=== PATIENT | male | born 1975 | race Caucasian/White ===

== ENCOUNTER 2020-04-16 16:48 | Emergency (ER) | payer BC ==
[2020-04-16 16:55] VITALS: BP 159/90; PULSE 69; RESP 18; TEMP 97.1
[2020-04-16] MEDS ORDERED: PSEUDOEPHEDRINE 12HR 120 MG TABLET.ER PO STA (17:31)
[2020-04-16] MEDS ORDERED: OXYMETAZOLINE 0.05% NASL SPRAY 1 SPRAY BOTTLE NASAL STA (17:31)
--- NOTE | 2020-04-16 18:24 | ED ---
General Adult HPI - General Chief complaint: Headache Stated complaint: Sinus headache Time Seen by Provider: 04/16/20 16:55 Source: patient, RN notes reviewed, old records reviewed Mode of arrival: ambulatory Limitations: no limitations - History of Present Illness Initial comments: 44-year-old male patient presents to ED for evaluation of sinus pressure. Patient reports that for the last 4 days he has been having left maxillary sinus pressure. Reports that about a week ago he had one day of some mild cough which has resolved. Denies any chest pain or shortness of breath. Denies any red flag symptoms or worse headache of life. Feels similar to sinus congestion of the past. Denies any other complaints. Systemic: Pt denies fatigue, fever/chills, rash. Pt denies weakness, night sweats, weight loss. Neuro: Pt denies headache, visual disturbances, syncope or pre-syncope. HEENT: Pt denies ocular discharge or irritation, otalgia, rhinorrhea, pharyngitis or notable lymphadenopathy. Cardiopulmonary: Pt denies chest pain, SOB, heart palpitations, dyspnea on exertion. Abdominal/GI: Pt denies abdominal pain, n/v/d. : Pt denies dysuria, burning w/ urination, frequency/urgency. Denies new onset urinary or bowel incontinence. MSK: Pt denies myalgia, loss of strength or function in extremities. Neuro: Pt denies new onset weakness, paresthesias. - Related Data Previous Rx's Medication Instructions Recorded Amoxicillin/Potassium Clav 1 each PO Q12HR #20 tab 04/16/20 [Augmentin 875-125 Tablet] Allergies Allergy/AdvReac Type Severity Reaction Status Date / Time No Known Allergies Allergy Verified 04/16/20 16:54 Review of Systems ROS Statement: Those systems with pertinent positive or pertinent negative responses have been documented in the HPI. ROS Other: All systems not noted in ROS Statement are negative. Past Medical History Past Medical History: No Reported History History of Any Multi-Drug Resistant Organisms: None Reported Past Surgical History: No Surgical Hx Reported Past Psychological History: No Psychological Hx Reported Past Alcohol Use History: None Reported Past Drug Use History: None Reported General Exam - General Exam Comments Initial Comments: Constitutional: NAD, AOX3, Pt has pleasant affect. HEENT: NC/AT, trachea midline, neck supple, no lymphadenopathy. External ears appear normal, without discharge. Mucous membranes moist. Eyes PERRLA, EOM intact. There is no scleral icterus. No pallor noted. Left maxillary sinus pressure reproducible on palpation. Cardiopulmonary: RRR, no murmurs, rubs or gallops, no JVD noted. Lungs CTAB in anterior and posterior aquino. No peripheral edema. Abdominal exam: Abdomen soft and non-distended. Abdomen non-tender to palpation in all 4 quadrants. Neuro: CN II-XII intact. No nuchal rigidity. No raccon eyes, no sutton sign, no hemotympanum. No cervical spinal tenderness. MSK: Sensation intact in upper and lower extremities. Full active ROM in upper and lower extremities, 5/5 stregnth. Limitations: no limitations Course Vital Signs 04/16/20 16:51 Temperature 97.1 F L Pulse Rate 69 Respiratory 18 Rate Blood Pressure 159/90 O2 Sat by Pulse 100 Oximetry Medical Decision Making - Medical Decision Making 44-year-old male patient to ED for left sinus pressure. Feels similar to sinusitis in the past. Denies red flag symptoms. Neurologic exam is intact. Patient will be treated with Afrin [id number] decongestants. I will prescribe patient Augmentin for him to use in 3 days if symptoms have not improved. The patient requested was also tested for coronavirus. Pt declined CXR. Will return to ED if any worsening symptoms. Case discussed with Dr. Laird. Disposition Clinical Impression: Sinus congestion Disposition: HOME SELF-CARE Condition: Stable Instructions (If sedation given, give patient instructions): Acute Headache (ED) Additional Instructions: Follow up with PCP tomorrow. Use 3 sprays of afrin in each nostril every 12 hours for the next 3 days. I recommend [id number] decongestant Pseudoephedrine. If symptoms in 3 days do not improve take augmentin antibiotic. Return to ED if symptoms worsen in anyway. Self quarentine until coronavirus results. Prescriptions: Amoxicillin/Potassium Clav [Augmentin 875-125 Tablet] 1 each PO Q12HR #20 tab Is patient prescribed a controlled substance at d/c from ED?: No Referrals: Mariely George MD [Primary Care Provider] - 1-2 days
== END 2020-04-16 19:00 | disposition home or self-care (01) ==
LOC: EC 16:48
DX: R09.81 Nasal congestion (principal); Z20.828 Contact with and (suspected) exposure to other viral communicable diseases
CPT/HCPCS: 99284 ×2; U0003

== ENCOUNTER 2021-06-27 18:05 | Inpatient (IN) | payer BC ==
[2021-06-27] MEDS ORDERED: SODIUM CHLORIDE 0.9% 1,000 ML IV STA ×2 (23:05)
[2021-06-27] MEDS ORDERED: MORPHINE SULFATE 4 MG/ML SYRINGE IV STA (23:05)
[2021-06-27] MEDS ORDERED: ONDANSETRON 4 MG/2 ML VIAL IVP STA (23:05)
[2021-06-27] MEDS ORDERED: KETOROLAC 15 MG/ML 1 ML VIAL IVP STA (23:05)
[2021-06-27] MEDS ORDERED: ACETAMINOPHEN TAB 500 MG TAB PO STA (23:06)
--- NOTE | 2021-06-27 23:06 | ED ---
Abdominal Pain HPI - General Chief Complaint: Recheck/Abnormal Lab/Rx Stated Complaint: abd pain Time Seen by Provider: 06/27/21 22:52 Source: patient, RN notes reviewed, old records reviewed Mode of arrival: ambulatory Limitations: no limitations - History of Present Illness Initial Comments: This is a 45-year-old male to the emergency department today. Patient presents today for evaluation of significant back pain left flank pain abdominal pain. P atient also has developed a mild fever and is concerned for coronavirus. He has no shortness of breath no travel history, no cough or congestion. Patient's main complaint is abdominal pain that is a temporarily can be relieved when he is able to pass gas. Patient denies any blood in the stool no nausea vomiting currently and no prior history of abdominal surgery also no history of colonoscopy MD Complaint: abdominal pain -: days(s) Location: diffuse, LLQ, suprapubic Radiation: LLQ Migration to: suprapubic, L flank Severity: severe Severity scale (1-10): 8 Quality: stabbing Consistency: intermittent Improves With: nothing Worsens With: nothing Context: other (none) Associated Symptoms: nausea, diarrhea, anorexia Treatments Prior to Arrival: other (none) - Related Data Previous Rx's Medication Instructions Recorded Amoxicillin/Potassium Clav 1 each PO Q12HR #20 tab 04/16/20 [Augmentin 875-125 Tablet] Allergies Allergy/AdvReac Type Severity Reaction Status Date / Time No Known Allergies Allergy Verified 06/27/21 19:13 Review of Systems ROS Statement: Those systems with pertinent positive or pertinent negative responses have been documented in the HPI. ROS Other: All systems not noted in ROS Statement are negative. Past Medical History Past Medical History: No Reported History History of Any Multi-Drug Resistant Organisms: None Reported Past Surgical History: No Surgical Hx Reported Past Psychological History: No Psychological Hx Reported Smoking Status: Never smoker Past Alcohol Use History: None Reported Past Drug Use History: None Reported General Exam Limitations: no limitations General appearance: alert, in no apparent distress Head exam: Present: atraumatic, normocephalic, normal inspection Eye exam: Present: normal appearance, PERRL, EOMI. Absent: scleral icterus, conjunctival injection, periorbital swelling ENT exam: Present: normal exam, mucous membranes moist Neck exam: Present: normal inspection. Absent: tenderness, meningismus, lymphadenopathy Respiratory exam: Present: normal lung sounds bilaterally. Absent: respiratory distress, wheezes, rales, rhonchi, stridor Cardiovascular Exam: Present: regular rate, normal rhythm, normal heart sounds. Absent: systolic murmur, diastolic murmur, rubs, gallop, clicks GI/Abdominal exam: Present: soft, tenderness, guarding, normal bowel sounds. Absent: distended, rebound, rigid Extremities exam: Present: normal inspection, full ROM, normal capillary refill. Absent: tenderness, pedal edema, joint swelling, calf tenderness Back exam: Present: normal inspection Neurological exam: Present: alert, oriented X3, CN II-XII intact Psychiatric exam: Present: normal affect, normal mood Skin exam: Present: warm, dry, intact, normal color. Absent: rash Course Vital Signs 06/27/21 06/28/21 19:14 00:41 Temperature 101.3 F H 98.3 F Pulse Rate 76 64 Respiratory 20 16 Rate Blood Pressure 131/79 115/70 O2 Sat by Pulse 98 98 Oximetry - Reevaluation(s) Reevaluation #1: 06/28/21 00:54 Medical record is reviewed Reevaluation #2: 06/28/21 00:54 Patient's pain is well-controlled Reevaluation #3: 06/28/21 00:54 Patient is informed of results and questions answered Medical Decision Making - Medical Decision Making 45 male to the ER for evaluation of severe abdominal pain with left lower quadrant abdominal pain positive for diverticulitis with pericolonic abscess. Patient will place on IV antibiotics - Lab Data Result diagrams: 06/27/21 23:00 06/27/21 23:00 Lab Results 06/27/21 06/27/21 06/27/21 Range/Units 19:19 23:00 23:00 WBC 12.9 H (3.8-10.6) k/uL RBC 4.61 (4.30-5.90) m/uL Hgb 14.7 (13.0-17.5) gm/dL Hct 45.0 (39.0-53.0) % MCV 97.6 (80.0-100.0) fL MCH 31.8 (25.0-35.0) pg MCHC 32.6 (31.0-37.0) g/dL RDW 11.9 (11.5-15.5) % Plt Count 210 (150-450) k/uL MPV 7.9 Neutrophils % 82 % Lymphocytes % 11 % Monocytes % 6 % Eosinophils % 0 % Basophils % 0 % Neutrophils # 10.6 H (1.3-7.7) k/uL Lymphocytes # 1.4 (1.0-4.8) k/uL Monocytes # 0.7 (0-1.0) k/uL Eosinophils # 0.1 (0-0.7) k/uL Basophils # 0.0 (0-0.2) k/uL PT 10.5 (9.0-12.0) sec INR 1.0 (<1.2) APTT 22.1 (22.0-30.0) sec Sodium (137-145) mmol/L Potassium (3.5-5.1) mmol/L Chloride (98-107) mmol/L Carbon Dioxide (22-30) mmol/L Anion Gap mmol/L BUN (9-20) mg/dL Creatinine (0.66-1.25) mg/dL Est GFR (CKD-EPI)AfAm (>60 ml/min/1.73 sqM) Est GFR (CKD-EPI)NonAf (>60 ml/min/1.73 sqM) Glucose (74-99) mg/dL Calcium (8.4-10.2) mg/dL Total Bilirubin (0.2-1.3) mg/dL AST (17-59) U/L ALT (4-49) U/L Alkaline Phosphatase (38-126) U/L Total Protein (6.3-8.2) g/dL Albumin (3.5-5.0) g/dL Amylase (30-110) U/L Lipase (23-300) U/L Urine Color Urine Appearance (Clear) Urine pH (5.0-8.0) Ur Specific [place] (1.001-1.035) Urine Protein (Negative) Urine Glucose (UA) (Negative) Urine Ketones (Negative) Urine Blood (Negative) Urine Nitrite (Negative) Urine Bilirubin (Negative) Urine Urobilinogen (<2.0) mg/dL Ur Leukocyte Esterase (Negative) Urine RBC (0-5) /hpf Urine WBC (0-5) /hpf Ur Squamous Epith Cells (0-4) /hpf Amorphous Sediment (None) /hpf Hyaline Casts (0-2) /lpf Urine Mucus (None) /hpf Coronavirus (PCR) Not Detected (Not Detectd) 06/27/21 06/27/21 Range/Units 23:00 23:00 WBC (3.8-10.6) k/uL RBC (4.30-5.90) m/uL Hgb (13.0-17.5) gm/dL Hct (39.0-53.0) % MCV (80.0-100.0) fL MCH (25.0-35.0) pg MCHC (31.0-37.0) g/dL RDW (11.5-15.5) % Plt Count (150-450) k/uL MPV Neutrophils % % Lymphocytes % % Monocytes % % Eosinophils % % Basophils % % Neutrophils # (1.3-7.7) k/uL Lymphocytes # (1.0-4.8) k/uL Monocytes # (0-1.0) k/uL Eosinophils # (0-0.7) k/uL Basophils # (0-0.2) k/uL PT (9.0-12.0) sec INR (<1.2) APTT (22.0-30.0) sec Sodium 136 L (137-145) mmol/L Potassium 4.4 (3.5-5.1) mmol/L Chloride 101 (98-107) mmol/L Carbon Dioxide 23 (22-30) mmol/L Anion Gap 12 mmol/L BUN 15 (9-20) mg/dL Creatinine 0.83 (0.66-1.25) mg/dL Est GFR (CKD-EPI)AfAm >90 (>60 ml/min/1.73 sqM) Est GFR (CKD-EPI)NonAf >90 (>60 ml/min/1.73 sqM) Glucose 124 H (74-99) mg/dL Calcium 9.3 (8.4-10.2) mg/dL Total Bilirubin 0.9 (0.2-1.3) mg/dL AST 36 (17-59) U/L ALT 35 (4-49) U/L Alkaline Phosphatase 67 (38-126) U/L Total Protein 7.6 (6.3-8.2) g/dL Albumin 4.4 (3.5-5.0) g/dL Amylase 58 (30-110) U/L Lipase 47 (23-300) U/L Urine Color Yellow Urine Appearance Clear (Clear) Urine pH 5.5 (5.0-8.0) Ur Specific [place] 1.031 (1.001-1.035) Urine Protein 1+ H (Negative) Urine Glucose (UA) Negative (Negative) Urine Ketones Negative (Negative) Urine Blood Negative (Negative) Urine Nitrite Negative (Negative) Urine Bilirubin Negative (Negative) Urine Urobilinogen <2.0 (<2.0) mg/dL Ur Leukocyte Esterase Negative (Negative) Urine RBC 4 (0-5) /hpf Urine WBC 5 (0-5) /hpf Ur Squamous Epith Cells 1 (0-4) /hpf Amorphous Sediment Rare H (None) /hpf Hyaline Casts 4 H (0-2) /lpf Urine Mucus Many H (None) /hpf Coronavirus (PCR) (Not Detectd) - Radiology Data Radiology results: report reviewed (CT abdomen and pelvis positive for diverticulitis with pericolonic abscess small), image reviewed Disposition Clinical Impression: Fever, Diverticulitis, Colonic diverticular abscess Disposition: ADMITTED IP TO THIS HOSP Condition: Good Is patient prescribed a controlled substance at d/c from ED?: No Referrals: Mariely George MD [Primary Care Provider] - 1-2 days
[2021-06-27 23:36] LABS: Basophils % (A) 0 %; Eosinophils # (A) 0.1 k/uL (0-0.7); Eosinophils % (A) 0 %; HGB 14.7 gm/dL (13.0-17.5); Lymphocytes # (A) 1.4 k/uL (1.0-4.8); Lymphocytes % (A) 11 %; MCH 31.8 pg (25.0-35.0); MCHC 32.6 g/dL (31.0-37.0); MCV 97.6 fL (80.0-100.0); Mean Platelet Volume 7.9; Monocytes # (A) 0.7 k/uL (0-1.0); Monocytes % (A) 6 %; Neutrophils # (A) 10.6 k/uL (1.3-7.7); Neutrophils % (A) 82 %; Platelet Count 210 k/uL (150-450); RBC 4.61 m/uL (4.30-5.90); RDW 11.9 % (11.5-15.5); WBC 12.9 k/uL (3.8-10.6)
[2021-06-27 23:41] LABS: Amorphous Sediment,Urine Rare /hpf; Appearance,Urine Clear (Clear); Bilirubin,Urine Negative (Negative); Blood,Urine Negative (Negative); Color,Urine Yellow; Glucose,Urine (UA) Negative (Negative); Hyaline Casts,Urine 4 /lpf (0-2); Ketones,Urine Negative (Negative); Leukocyte Esterase,Urine Negative (Negative); Mucus,Urine Many /hpf; Nitrite,Urine Negative (Negative); PH, Urine 5.5 (5.0-8.0); Protein,Urine 1+ (Negative); RBC,Urine 4 /hpf (0-5); Specific Gravity,Urine 1.031 (1.001-1.035); Squamous Epithelial Cell,Urine 1 /hpf (0-4); Urobilinogen,Urine <2.0 mg/dL (<2.0); WBC,Urine 5 /hpf (0-5)
[2021-06-27 23:42] LABS: ALT 35 U/L (4-49); AST 36 U/L (17-59); African American GFR (CKD) >90 (>60 ml/min/1.73 sqM); Albumin 4.4 g/dL (3.5-5.0); Alkaline Phosphatase 67 U/L (38-126); Amylase 58 U/L (30-110); Anion Gap 12 mmol/L; Blood Urea Nitrogen 15 mg/dL (9-20); Calcium 9.3 mg/dL (8.4-10.2); Carbon Dioxide 23 mmol/L (22-30); Chloride 101 mmol/L (98-107); Glucose 124 mg/dL (74-99); Lipase 47 U/L (23-300); Non-African American GFR(CKD) >90 (>60 ml/min/1.73 sqM); Sodium 136 mmol/L (137-145); Total Bilirubin 0.9 mg/dL (0.2-1.3); Total Protein 7.6 g/dL (6.3-8.2)
[2021-06-27 23:43] LABS: Potassium 4.4 mmol/L (3.5-5.1)
[2021-06-27 23:56] LABS: Partial Thromboplastin Time 22.1 sec (22.0-30.0); Prothrombin Time 10.5 sec (9.0-12.0)
--- NOTE | 2021-06-28 00:06 | CT ---
EXAMINATION TYPE: CT abdomen pelvis w con DATE OF EXAM: 06/27/2021 COMPARISON: None HISTORY: LLQ pain CT DLP: 1401.6 mGycm Automated exposure control for dose reduction was used. CONTRAST: Performed with IV Contrast, patient injected with 100 mL of Isovue 300. Images obtained from the diaphragm to the floor the pelvis with IV contrast. Lung bases are clear. There is no pleural effusion. Heart size is normal. There is no pericardial eff usion. Liver spleen and stomach pancreas gallbladder appear intact. The bile ducts are not dilated. There is no adrenal mass. Kidneys show satisfactory contrast opacification. There is no hydronephrosis. There is a 1 cm cyst in the anterior right kidney. There is 1 cm cortical cyst upper pole right kidney. De layed images show normal renal excretion. Ureters are not dilated. Bladder distends smoothly. There is wall thickening of the mid sigmoid colon. There is extensive fat stranding around the sigmoi d colon with some fluid in the pelvis and minimal fluid in the left paracolic gutter. There is a smal l extraluminal air bubbles at the posterior aspect of the sigmoid colon that could be diverticula or abscess. Appendix appears normal. Small bowel pattern is normal. The lumbar vertebrae have normal alignment. Posterior elements are intact. There is no compression fr acture. Bony pelvis is intact. Hip joints are intact. IMPRESSION: There is evidence of sigmoid diverticulitis with small peridiverticular abscess or sigmoid diverticul um and significant inflammatory changes. Mild free fluid in the pelvis. No free air.
[2021-06-28] MEDS ORDERED: ONDANSETRON 4 MG/2 ML VIAL IVP PRN (00:56)
[2021-06-28] MEDS ORDERED: NALOXONE 0.4 MG/ML 1 ML VIAL IV PRN (00:56)
[2021-06-28] MEDS ORDERED: SODIUM CHLORIDE 0.9% 1,000 ML IV STA (00:56)
[2021-06-28] MEDS ORDERED: MORPHINE SULFATE 4 MG/ML SYRINGE IV PRN (00:56)
[2021-06-28] MEDS ORDERED: AMPICILLIN-SULBACTAM 3 GM in SODIUM CHLORIDE 0.9% 100 ML IVPB STA (00:56)
[2021-06-28] MEDS: SODIUM CHLORIDE 0.9% 1,000 ML IV SCH ×3 (01:11→18:06)
[2021-06-28] MEDS ORDERED: AMPICILLIN-SULBACTAM 3 GM in SODIUM CHLORIDE 0.9% 100 ML IVPB SCH (09:00)
--- NOTE | 2021-06-28 13:12 | P.GSHP ---
History of Present Illness H&P Date: 06/28/21 Chief Complaint: diverticulitis is a 45-year-old male with complaints of abdominal pain. Patient workup and management. Son have evidence of diverticulitis. Past Medical History Past Medical History: No Reported History History of Any Multi-Drug Resistant Organisms: None Reported Past Surgical History: No Surgical Hx Reported Past Psychological History: No Psychological Hx Reported Smoking Status: Never smoker Past Alcohol Use History: None Reported Past Drug Use History: None Reported - Past Family History Father Additional Family Medical History / Comment(s): spinal stroke Medications and Allergies Home Medications Medication Instructions Recorded Confirmed Type No Known Home Medications 06/28/21 06/28/21 History Allergies Allergy/AdvReac Type Severity Reaction Status Date / Time No Known Allergies Allergy Verified 06/28/21 06:47 Surgical - Exam Vital Signs Temp Pulse Resp BP Pulse Ox 101.3 F H 76 20 131/79 98 06/27/21 19:14 06/27/21 19:14 06/27/21 19:14 06/27/21 19:14 06/27/21 19:14 - General well developed, well nourished, no distress - Eyes PERRL - ENT normal pinna - Neck no masses - Respiratory normal expansion - Cardiovascular Rhythm: regular - Abdomen Mild tenderness throughout. There is increased tenderness left lower quadrant Abdomen: soft Results - Labs 06/27/21 23:00 06/27/21 23:00 Abnormal Lab Results - Last 24 Hours (Table) 06/27/21 06/27/21 06/27/21 Range/Units 23:00 23:00 23:00 WBC 12.9 H (3.8-10.6) k/uL Neutrophils # 10.6 H (1.3-7.7) k/uL Sodium 136 L (137-145) mmol/L Glucose 124 H (74-99) mg/dL Urine Protein 1+ H (Negative) Amorphous Sediment Rare H (None) /hpf Hyaline Casts 4 H (0-2) /lpf Urine Mucus Many H (None) /hpf Diabetes panel 06/27/21 Range/Units 23:00 Sodium 136 L (137-145) mmol/L Potassium 4.4 (3.5-5.1) mmol/L Chloride 101 (98-107) mmol/L Carbon Dioxide 23 (22-30) mmol/L BUN 15 (9-20) mg/dL Creatinine 0.83 (0.66-1.25) mg/dL Glucose 124 H (74-99) mg/dL Calcium 9.3 (8.4-10.2) mg/dL AST 36 (17-59) U/L ALT 35 (4-49) U/L Alkaline Phosphatase 67 (38-126) U/L Total Protein 7.6 (6.3-8.2) g/dL Albumin 4.4 (3.5-5.0) g/dL Calcium panel 06/27/21 Range/Units 23:00 Calcium 9.3 (8.4-10.2) mg/dL Albumin 4.4 (3.5-5.0) g/dL Pituitary panel 06/27/21 Range/Units 23:00 Sodium 136 L (137-145) mmol/L Potassium 4.4 (3.5-5.1) mmol/L Chloride 101 (98-107) mmol/L Carbon Dioxide 23 (22-30) mmol/L BUN 15 (9-20) mg/dL Creatinine 0.83 (0.66-1.25) mg/dL Glucose 124 H (74-99) mg/dL Calcium 9.3 (8.4-10.2) mg/dL Adrenal panel 06/27/21 Range/Units 23:00 Sodium 136 L (137-145) mmol/L Potassium 4.4 (3.5-5.1) mmol/L Chloride 101 (98-107) mmol/L Carbon Dioxide 23 (22-30) mmol/L BUN 15 (9-20) mg/dL Creatinine 0.83 (0.66-1.25) mg/dL Glucose 124 H (74-99) mg/dL Calcium 9.3 (8.4-10.2) mg/dL Total Bilirubin 0.9 (0.2-1.3) mg/dL AST 36 (17-59) U/L ALT 35 (4-49) U/L Alkaline Phosphatase 67 (38-126) U/L Total Protein 7.6 (6.3-8.2) g/dL Albumin 4.4 (3.5-5.0) g/dL - Imaging Additional studies: and computed tomography scan the abdomen shows evidence of sigmoid diverticulitis possible peridiverticular abscess. Assessment and Plan Assessment: Diverticula is. Patient remained nothing by mouth. We'll continue IV antibiotics.
[2021-06-28] MEDS ORDERED: ALPRAZolam 0.25 MG TAB PO PRN (14:45)
[2021-06-28] MEDS ORDERED: HYDROmorphone 0.5 MG/0.5 ML SYRINGE IVP PRN (14:45)
[2021-06-28] MEDS ORDERED: TEMAZEPAM 15 MG CAP PO PRN (14:45)
[2021-06-28] MEDS: PIPERACILLIN-TAZOBACTAM 3.375 GM in SODIUM CHLORIDE 0.9% 100 ML IVPB SCH (15:54)
[2021-06-28] MEDS: HEPARIN SODIUM,PORCINE/PF 5,000 UNIT/0.5 ML SYRINGE SQ SCH ×2 (15:54→22:04)
--- NOTE | 2021-06-28 16:59 | HP ---
HISTORY AND PHYSICAL CHIEF COMPLAINT: Abdominal pain and diverticulitis, diverticular abscess. HISTORY OF PRESENT ILLNESS: This 45-year-old gentleman with a past medical history of no significant medical issues being followed by Dr. George in the outpatient setting, complaining of abdominal pain. The patient had pain in the left flank. The patient also developed some mild fever and the patient was concerned about Covid 19. Patient came to [facility] and was admitted for further evaluation and treatment. White count is elevated at 12.9. The Covid 19 was negative. However, a CT scan of the abdomen and pelvis noted, showed evidence of sigmoid diverticulitis, small prediverticular abscess and inflammatory changes. Patient was admitted for further evaluation and treatment. Surgical evaluation by Dr. Fontanez is ongoing at this time. Dr. Fontanez is recommending IV antibiotics at this point. There is no history of rigors, chills, no history of headache, loss of consciousness or seizures. PAST MEDICAL HISTORY: No significant cardiorespiratory illness. MEDICATIONS: Prior to admission, none. ALLERGIES: None. FAMILY HISTORY: History of spinal stroke in the family. SOCIAL HISTORY: No history of smoking, no history of alcohol intake. REVIEW OF SYSTEMS: ENT: No diminished vision. No diminished hearing. CARDIOVASCULAR: No angina. RESPIRATION: No cough. GI as mentioned earlier. : No dysuria. NERVOUS SYSTEM: No numbness or weakness. ALLERGY/IMMUNOLOGY: No asthma or hayfever. MUSCULOSKELETAL: As mentioned earlier. HEMATOLOGY/ONCOLOGY: No history of anemia. ENDOCRINE: No history of diabetes or hypothyroidism. CONSTITUTIONAL: As mentioned earlier. DERMATOLOGY: Negative. RHEUMATOLOGY: Negative. PSYCHIATRIC: As mentioned. PHYSICAL EXAMINATION: Alert and oriented times three. Pulse 64, blood pressure is 115/70, respirations 16, temperature 98.3, T-max 101.3, pulse ox 98% on room air. HEENT is conjunctivae normal. NECK: No JVD. CARDIOVASCULAR: S1, S2 muffled. RESPIRATION: Breath sounds diminished in the bases. No rhonchi. No crackles. ABDOMEN: Soft, obese. Mild diffuse tenderness in the left side present. No guarding. No rigidity. No mass palpable. No rebound tenderness. Bowel sounds present. No ascites. LEGS: No edema. No swelling. NERVOUS SYSTEM: Higher functions as mentioned. Moves all four limbs. No focal motor or sensory deficits. LYMPHATICS: No lymph nodes palpable in the neck, axillae or groin. SKIN: No ulcer, no rash and no bleeding. JOINTS: No active deforming arthropathy. LABS: WBC 12.9, hemoglobin 14.7, sodium 133, potassium 4.4. ASSESSMENT: 1. Abdominal pain with possible acute diverticulitis with peridiverticular abscess with possible early sepsis, present on admission with severe abdominal pain. 2. Increased WBC. 3. Hyponatremia, mild. 4. Elevated random glucose. 5. Obesity with body mass of 31.9. 6. FULL CODE. RECOMMENDATIONS AND DISCUSSION: This 45-year-old gentleman presented with multiple complex medical issues, we will monitor the patient closely, continue the current medications, management and symptomatic treatment. We will initiate IV Zosyn and surgical evaluation. Otherwise, symptomatic treatment. Guarded prognosis because of multiple complex medical issues. Further recommendations to follow. A copy of this dictation being forwarded to Dr. George who is the primary physician. Closely follow with surgery. Prognosis guarded. Discussed with the patient and family at the bedside. MMODL / IJN: [id number] /
[2021-06-28] MEDS: PANTOPRAZOLE 40 MG/10 ML VIAL IVP SCH (22:04)
[2021-06-29] MEDS: PIPERACILLIN-TAZOBACTAM 3.375 GM in SODIUM CHLORIDE 0.9% 100 ML IVPB SCH ×3 (00:49→15:31)
[2021-06-29] MEDS: SODIUM CHLORIDE 0.9% 1,000 ML IV SCH ×3 (05:47→15:32)
[2021-06-29] MEDS: PANTOPRAZOLE 40 MG/10 ML VIAL IVP SCH (07:31)
[2021-06-29] MEDS: HEPARIN SODIUM,PORCINE/PF 5,000 UNIT/0.5 ML SYRINGE SQ SCH ×2 (07:32→20:30)
[2021-06-29 09:41] LABS: African American GFR (CKD) 119.3 (60.0-200.0); Albumin 3.7 g/dL (3.8-4.9); Albumin/Globulin Ratio 1.73 (1.60-3.17); BUN/Creat Ratio 15.04 Ratio (12.00-20.00); Blood Urea Nitrogen 13.6 mg/dL (9.0-27.0); Calcium 8.8 mg/dL (8.7-10.3); Carbon Dioxide 23.7 mmol/L (20.0-27.5); Globulin 2.2 g/dL (1.6-3.3); Magnesium 1.9 mg/dL (1.5-2.4); Phosphorus 2.4 mg/dL (2.4-5.1); Potassium 3.8 mmol/L (3.5-5.5); Total Bilirubin 0.6 mg/dL (0.30-1.20); Total Protein 5.9 g/dL (6.2-8.2)
[2021-06-29 09:42] LABS: Basophils # (A) 0.02 X 10*3/uL (0.00-0.10); Basophils % (A) 0.4 %; Eosinophils # (A) 0.07 X 10*3/uL (0.04-0.35); Eosinophils % (A) 1.4 %; HCT 38.6 % (39.6-50.0); HGB 11.9 g/dL (13.0-17.0); Lymphocytes # (A) 1.24 X 10*3/uL (0.90-5.00); Lymphocytes % (A) 25.3 %; MCH 30.1 pg (27.0-32.0); MCHC 30.8 g/dL (32.0-37.0); MCV 97.7 fL (80.0-97.0); Mean Platelet Volume 10.6 fL (9.5-12.2); Monocytes # (A) 0.44 X 10*3/uL (0.20-1.00); Neutrophils # (A) 3.14 X 10*3/uL (1.80-7.70); Neutrophils % (A) 63.9 %; Platelet Count 192 X 10*3/uL (140-440); RBC 3.95 X 10*6/uL (4.40-5.60); RDW 11.9 % (11.5-14.5); WBC 4.91 X 10*3/uL (4.50-10.00)
--- NOTE | 2021-06-29 13:06 | P.PN ---
Progress Note - Text Progress Note Date: 06/29/21 Patient feels significantly better. He states his pain is much improved. He still has some mild pain left lower quadrant. On exam vital signs are stable. Abdomen soft. Improving diverticula is. Patient will start on clear liquid diet.
[2021-06-29] MEDS ORDERED: ACETAMINOPHEN TAB 500 MG TAB PO PRN (18:22)
--- NOTE | 2021-06-29 18:48 | PN ---
PROGRESS NOTE DATE OF SERVICE: 06/29/2021 This 45-year-old gentleman was admitted with acute diverticulitis and diverticular abscess on IV antibiotics. Patient on conservative line of management. No chest pain. No palpitations. No fever. PHYSICAL EXAMINATION: Alert and oriented x3. The pulse is 63, blood pressure 120/77, respiration 18, temperature 98.2, pulse ox 98% on room air. HEENT: Conjunctivae normal. Oral mucosa moist. NECK: No jugular venous distention. No lymph node enlargement. CARDIOVASCULAR: S1, S2, muffled. No S3, no S4, RESPIRATORY: Diminished breath sounds at the bases. A few scattered rhonchi. ABDOMEN: Soft. Mild diffuse tenderness on the left side of the abdomen. NERVOUS SYSTEM: No focal deficits. LAB: WBC 4.91, hemoglobin 11.9, sodium 141, potassium 3.8. ASSESSMENT: 1. Abdominal pain with possible acute diverticulitis with pre diverticular abscess with possible early sepsis, present on admission with severe abdominal pain. 2. Increased WBC. 3. Hyponatremia, mild. 4. Elevated random glucose. 5. Obesity with body mass index 31.9. 6. FULL CODE. RECOMMENDATIONS AND DISCUSSION: Recommend to continue current management and symptomatic treatment. Otherwise, continue with antibiotics. Closely follow with surgery. Guarded prognosis. Further recommendations to follow. MMODL / IJN: [id number] /
[2021-06-30] MEDS: PANTOPRAZOLE 40 MG/10 ML VIAL IVP SCH ×2 (00:13→07:36)
[2021-06-30] MEDS: PIPERACILLIN-TAZOBACTAM 3.375 GM in SODIUM CHLORIDE 0.9% 100 ML IVPB SCH ×2 (00:14→09:17)
[2021-06-30] MEDS: SODIUM CHLORIDE 0.9% 1,000 ML IV SCH (05:24)
[2021-06-30 09:02] LABS: Basophils # (A) 0.03 X 10*3/uL (0.00-0.10); Basophils % (A) 0.7 %; Eosinophils # (A) 0.12 X 10*3/uL (0.04-0.35); Eosinophils % (A) 2.9 %; HCT 36.9 % (39.6-50.0); HGB 11.7 g/dL (13.0-17.0); Lymphocytes # (A) 1.44 X 10*3/uL (0.90-5.00); Lymphocytes % (A) 35.3 %; MCH 30.7 pg (27.0-32.0); MCHC 31.7 g/dL (32.0-37.0); MCV 96.9 fL (80.0-97.0); Mean Platelet Volume 10.7 fL (9.5-12.2); Monocytes % (A) 9.8 %; Neutrophils # (A) 2.08 X 10*3/uL (1.80-7.70); Neutrophils % (A) 51.1 %; Platelet Count 209 X 10*3/uL (140-440); RBC 3.81 X 10*6/uL (4.40-5.60); RDW 11.9 % (11.5-14.5); WBC 4.08 X 10*3/uL (4.50-10.00)
[2021-06-30 09:13] LABS: African American GFR (CKD) 125.9 (60.0-200.0); Anion Gap 8.6 mmol/L (10.00-18.00); BUN/Creat Ratio 12.13 Ratio (12.00-20.00); Blood Urea Nitrogen 9.7 mg/dL (9.0-27.0); Calcium 8.8 mg/dL (8.7-10.3); Carbon Dioxide 23.4 mmol/L (20.0-27.5); Non-African American GFR(CKD) 108.6 (60.0-200.0); Potassium 4.1 mmol/L (3.5-5.5)
[2021-06-30] MEDS: HEPARIN SODIUM,PORCINE/PF 5,000 UNIT/0.5 ML SYRINGE SQ SCH (09:17)
[2021-06-30 16:41] VITALS: BP 145/92; PULSE 63; RESP 14; TEMP 97.9
--- NOTE | 2021-06-30 20:16 | DS ---
DISCHARGE SUMMARY DATE OF SERVICE: 06/30/2021 FINAL DIAGNOSES: 1. Abdominal pain with possible acute diverticulitis with peridiverticular abscess and possible early sepsis, present on admission, severe abdominal pain, improved. 2. Increased WBC. 3. Hyponatremia mild. 4. Elevated random glucose. 5. Obesity with body mass of 31.8. 6. FULL CODE. DISCHARGE DISPOSITION: The patient will be discharged in stable condition with guarded prognosis. Surgery cleared the patient for discharge. HISTORY OF PRESENT ILLNESS: This 45-year-old gentleman with a past medical history of multiple medical problems, being followed by Dr. George in the outpatient setting admitting with abdominal pain and features of acute diverticulitis and diverticular abscess, treated with IV antibiotics. Patient improved significantly. Dr. Fontanez saw the patient and recommended outpatient followup. Patient is keen on going home. The patient discharged in stable condition with guarded prognosis. DISCHARGE ADVICE AND MEDICATIONS: 1. Diet is soft bland as tolerated. 2. Activity limited followup. 3. Follow up with Dr. Fontanez in 1 week or p.r.n. 4. Follow up with Dr. George in 2-3 days. MEDICATIONS: Will be as follows: 1. Augmentin 875 mg p.o. b.i.d. for 5 days. 2. Colace as before, Colace per surgery. 3. Levaquin 500 mg p.o. daily for 1 week. 4. Tylenol p.r.n. Once again the patient being discharged in stable condition with guarded prognosis. MMODL / IJN: [id number] /
--- NOTE | 2021-07-01 11:22 | P.DS ---
Providers Date of admission: 06/28/21 00:56 Expected date of discharge: 06/30/21 Attending physician: Octavio Fontanez Consults: 06/28/21 10:38 Consult Physician Routine Consulting Provider: Octavio Fontanez Consult Reason/Comments: divertic?? Do you want consulting provider notified?: Yes Primary care physician: Doris Schuster [place] [facility] Course: This is a 45-year-old male who was admitted with diverticulitis. Patient responded to medical therapy. Patient was discharged home on 06/30/2021. He will follow-up the office in one week. Patient Condition at Discharge: Good Plan - Discharge Summary New Discharge Prescriptions: New Docusate [Colace] 100 mg PO BID #20 capsule Levofloxacin [Levaquin] 500 mg PO DAILY 1 Days #7 tab Acetaminophen Tab [Tylenol] 650 mg PO Q6H #30 tab Amoxic-Pot Clav 875-125Mg [Augmentin 875-125] 1 tab PO BID 5 Days #10 tab Discharge Medication List Acetaminophen Tab [Tylenol] 650 mg PO Q6H #30 tab 06/30/21 [Rx] Amoxic-Pot Clav 875-125Mg [Augmentin 875-125] 1 tab PO BID 5 Days #10 tab 06/30/21 [Rx] Docusate [Colace] 100 mg PO BID #20 capsule 06/30/21 [Rx] Levofloxacin [Levaquin] 500 mg PO DAILY 1 Days #7 tab 06/30/21 [Rx] Follow up Appointment(s)/Referral(s): Mariely George MD [Primary Care Provider] - 1-2 days (office closed at time of discharge. Please call Friday to schedule appointment ) Octavio Fnotanez MD [STAFF PHYSICIAN] - 1 Week (office closed at time of discharge. Please call Friday for appointment ) Ambulatory/Diagnostic Orders: Complete Blood Count w/diff [LAB.AMB] Location: None Selected Patient Instructions/Handouts: Diverticulitis (DC), Diverticulitis Diet (DC) Discharge Disposition: HOME SELF-CARE
== END 2021-06-30 15:55 | disposition home or self-care (01) | DRG 392 ==
LOC: EC 18:05 → 5NMEDONC 06-28 00:56 → 2SICU 06-28 12:09 → 5NMEDONC 06-28 12:10 → 4SSUR 06-28 20:09
PROVIDERS: ADMIT Surgery; ATTEND Surgery
DX: K57.20 Diverticulitis of large intestine with perforation and abscess without bleeding (principal); E87.1 Hypo-osmolality and hyponatremia; Z20.822 Contact with and (suspected) exposure to COVID-19; E66.9 Obesity, unspecified; Z68.31 Body mass index [BMI] 31.0-31.9, adult; Z82.3 Family history of stroke; R73.9 Hyperglycemia, unspecified
CPT/HCPCS: 36415; 74177; 80048; 80053; 81001; 82150; 83690; 83735; 84100; 85025; 85610; 85730; 87635; 96361; 96374; 96375; 99285

== ENCOUNTER 2021-08-06 08:36 | Day surgery (SDC) | payer BC ==
[~2021-08-06 08:36] MED LIST: LACTATED RINGERS 1,000 ML IV SCH; LIDOCAINE 1% (10MG/ML) FOR IV START INTRADERMA PRN
[2021-08-06 09:05] VITALS: TEMP 98
[2021-08-06] MEDS ORDERED: PROPOFOL 10 MG/ML 20 ML VIAL IV ONE (09:33)
[2021-08-06] MEDS ORDERED: GLYCOPYRROLATE 0.2 MG/ML 2 ML VIAL ONE (09:33)
[2021-08-06] MEDS ORDERED: LIDOCAINE 1% INJ 10MG/ML (20 ML MDV) ONE (09:33)
--- NOTE | 2021-08-06 10:18 | P.OP ---
Date of Procedure: 08/06/21 Preoperative Diagnosis: GI bleed Diverticulitis Postoperative Diagnosis: Antral gastritis Diverticulosis Procedure(s) Performed: EGD Colonoscopy Anesthesia: MAC Surgeon: Octavio Fontanez Pathology: other (Antrum) Condition: stable Disposition: PACU Description of Procedure: The patient's placed on the endoscopy table in the lateral position. He received IV sedation. The gastroscope placed oropharynx passed in the esophagus into the stomach. Scope then placed through the pylorus. The first and second portion of the duodenum appeared normal. Scope was brought back the antrum this. Mildly inflamed. A biopsies performed. The scope was then retroflexed and the remainder of the stomach appeared normal. The GE junction was at 40 cm. The distal esophagus appeared normal. The proximal esophagus appeared normal. Scope withdrawn for patient. Next digital rectal exam was performed. This revealed no abnormalities. The flexible colonoscope was then placed patient anus passed throughout the entire colon. The ileocecal valve was visualized. The cecum, ascending and transverse colon appeared normal. In the descending colon was a few scattered diverticula. In the sigmoid colon there is more diverticula changes seen. There is no evidence of any active diverticulitis. Scope was then brought back the rectum and this appeared normal. The scope withdrawn for patient.
--- NOTE | 2021-08-06 10:19 | P.GSHP ---
History of Present Illness H&P Date: 08/06/21 Chief Complaint: GI bleed, diverticulitis Is a 46-year-old male who presents today for colonoscopy. Patient has had recent hospital for diverticulitis Past Medical History Past Medical History: No Reported History Additional Past Medical History / Comment(s): DIVERTICULITIS History of Any Multi-Drug Resistant Organisms: None Reported Past Surgical History: No Surgical Hx Reported Additional Past Surgical History / Comment(s): BILATERAL EAR TUBES. Past Anesthesia/Blood Transfusion Reactions: No Reported Reaction Additional Past Anesthesia/Blood Transfusion Reaction / Comment(s): IS VERY NERVOUS ABOUT ANESTHESIA Past Psychological History: No Psychological Hx Reported Smoking Status: Never smoker Past Alcohol Use History: None Reported Additional Past Alcohol Use History / Comment(s): SMOKED ON AND OFF. QUIT 2019. Past Drug Use History: None Reported - Past Family History Father Additional Family Medical History / Comment(s): spinal stroke Medications and Allergies Home Medications Medication Instructions Recorded Confirmed Type Acetaminophen Tab [Tylenol] 650 mg PO Q6H #30 tab 06/30/21 08/06/21 Rx Allergies Allergy/AdvReac Type Severity Reaction Status Date / Time No Known Allergies Allergy Verified 08/06/21 08:53 Surgical - Exam Vital Signs Temp Pulse Resp BP Pulse Ox 98.0 F 65 18 134/94 100 08/06/21 08:56 08/06/21 08:56 08/06/21 08:56 08/06/21 08:56 08/06/21 08:56 - General well developed, well nourished, no distress - Eyes PERRL - ENT normal pinna - Neck no masses - Respiratory normal expansion - Cardiovascular Rhythm: regular - Abdomen Abdomen: soft, non tender Assessment and Plan Assessment: GI bleed, diverticulitis. We'll perform EGD and colonoscopy
[2021-08-06 10:25] VITALS: RESP 16
[2021-08-06 11:02] VITALS: BP 142/79; PULSE 75
== END 2021-08-06 11:34 | disposition home or self-care (01) ==
LOC: ORWHC2ENDO 08:36
PROVIDERS: ATTEND Surgery
DX: K57.30 Diverticulosis of large intestine without perforation or abscess without bleeding (principal); K29.70 Gastritis, unspecified, without bleeding; Z98.890 Other specified postprocedural states; Z87.891 Personal history of nicotine dependence; Z84.89 Family history of other specified conditions; Z79.899 Other long term (current) drug therapy
CPT/HCPCS: 88305; 45378; 43239; J2001; J2704

== ENCOUNTER 2022-06-18 17:45 | Emergency (ER) | payer BC ==
[2022-06-18 17:54] VITALS: BP 114/76; PULSE 73; RESP 16; TEMP 97.8
[2022-06-18] MEDS ORDERED: KETOROLAC 15 MG/ML 1 ML VIAL IVP STA (18:19)
[2022-06-18] MEDS ORDERED: SODIUM CHLORIDE 0.9% 500 ML 500 ML IV STA (18:19)
[2022-06-18 18:55] LABS: Basophils # (A) 0.1 k/uL (0-0.2); Basophils % (A) 2 %; Eosinophils % (A) 0 %; HCT 43.9 % (39.0-53.0); HGB 14.7 gm/dL (13.0-17.5); Lymphocytes # (A) 1.3 k/uL (1.0-4.8); Lymphocytes % (A) 34 %; MCH 30.8 pg (25.0-35.0); MCHC 33.5 g/dL (31.0-37.0); Mean Platelet Volume 8.2; Monocytes # (A) 0.2 k/uL (0-1.0); Monocytes % (A) 7 %; Neutrophils # (A) 2.1 k/uL (1.3-7.7); Neutrophils % (A) 56 %; Platelet Count 151 k/uL (150-450); RBC 4.77 m/uL (4.30-5.90); RDW 11.8 % (11.5-15.5); WBC 3.7 k/uL (3.8-10.6)
[2022-06-18 19:04] LABS: Appearance,Urine Clear (Clear); Bilirubin,Urine Negative (Negative); Blood,Urine Negative (Negative); Color,Urine Yellow; Glucose,Urine (UA) Negative (Negative); Ketones,Urine Negative (Negative); Leukocyte Esterase,Urine Negative (Negative); Nitrite,Urine Negative (Negative); Protein,Urine Trace (Negative); Specific Gravity,Urine 1.013 (1.001-1.035); Urobilinogen,Urine <2.0 mg/dL (<2.0)
--- NOTE | 2022-06-18 19:06 | CT ---
EXAMINATION TYPE: CT abdomen pelvis wo con DATE OF EXAM: 06/18/2022 HISTORY: Abdominal pain, hx diverticulitis CT DLP: 722.6 mGycm. Automated Exposure Control for Dose Reduction was Utilized. TECHNIQUE: CT scan of the abdomen and pelvis is performed without oral or IV contrast. COMPARISON: CT abdomen and pelvis June 27, 2021 FINDINGS: Within the limitations of a non-contrast study, the following observations are made. LUNG BASES: New patchy groundglass opacity in the right lower lobe greatest posterior lung base. LIVER/GB: No significant abnormality is appreciated. PANCREAS: No significant abnormality is seen. SPLEEN: No significant abnormality is seen. ADRENALS: No significant abnormality is seen. KIDNEYS: Single 2 to 3 mm nonobstructing calculus in the right kidney coronal image 62. No left-sided nephrolithiasis. No hydronephrosis seen bilaterally. No intraluminal calculus in the poorly distende d bladder. Single right-sided pelvic phlebolith on axial image 80 BOWEL: Suboptimal evaluation without enteric contrast. No suspicious small or large bowel dilatation is seen on current study. GENITAL ORGANS: No gross abnormality seen. LYMPH NODES: No greater than 1cm abdominal or pelvic lymph nodes are appreciated. OSSEOUS STRUCTURES: No significant abnormality is seen. OTHER: Stable small fat-containing right inguinal hernia. IMPRESSION: No bowel obstruction. No suspicious acute finding identified on noncontrast CT on current study.
[2022-06-18 19:07] LABS: ALT 47 U/L (4-49); AST 50 U/L (17-59); African American GFR (CKD) >90 (>60 ml/min/1.73 sqM); Albumin 4.2 g/dL (3.5-5.0); Alkaline Phosphatase 65 U/L (38-126); Amylase 66 U/L (30-110); Anion Gap 10 mmol/L; Blood Urea Nitrogen 15 mg/dL (9-20); Calcium 8.9 mg/dL (8.4-10.2); Carbon Dioxide 26 mmol/L (22-30); Chloride 102 mmol/L (98-107); Glucose 97 mg/dL (74-99); Lipase 110 U/L (23-300); Non-African American GFR(CKD) >90 (>60 ml/min/1.73 sqM); Potassium 3.8 mmol/L (3.5-5.1); Sodium 138 mmol/L (137-145); Total Bilirubin 0.6 mg/dL (0.2-1.3)
--- NOTE | 2022-06-18 19:39 | ED ---
General Adult HPI - General Chief complaint: Abdominal Pain Stated complaint: abd pain Time Seen by Provider: 06/18/22 17:55 Source: patient, RN notes reviewed, old records reviewed Mode of arrival: ambulatory Limitations: no limitations - History of Present Illness Initial comments: This a 46-year-old male who presents emergency Department complaining of abdominal pain for 2 days. Patient states prior to that he did have a fever and the rest the family had RSV so he assumes is what he had. Patient states the fevers been gone now for 2 days. Patient complains of left lower quadrant pain he states feels like the diverticulitis he had a few years ago. Patient states last anyway to commit and hit [facility] for 3 days. Patient was trying to avoid that today. Patient denies any nausea vomiting. Patient denies any fever for the last 2 days. Patient denies any back pain. Patient denies any dysuria hematuria urinary frequency. - Related Data Home Medications Medication Instructions Recorded Confirmed Bismuth Subsalicylate 30 ml PO Q4H PRN 11/08/21 06/18/22 [Pepto-Bismol] Acetaminophen [Tylenol Extra 500 mg PO Q6H PRN 06/18/22 06/18/22 Strength] guaiFENesin-DM 600/30MG [Mucinex 1 tab PO Q12H PRN 06/18/22 06/18/22 Dm] Allergies Allergy/AdvReac Type Severity Reaction Status Date / Time No Known Allergies Allergy Verified 06/18/22 19:27 Review of Systems ROS Statement: Those systems with pertinent positive or pertinent negative responses have been documented in the HPI. ROS Other: All systems not noted in ROS Statement are negative. Past Medical History Past Medical History: No Reported History Additional Past Medical History / Comment(s): DIVERTICULITIS History of Any Multi-Drug Resistant Organisms: None Reported Past Surgical History: No Surgical Hx Reported Additional Past Surgical History / Comment(s): BILATERAL EAR TUBES. Past Anesthesia/Blood Transfusion Reactions: No Reported Reaction Additional Past Anesthesia/Blood Transfusion Reaction / Comment(s): IS VERY NERVOUS ABOUT ANESTHESIA Past Psychological History: No Psychological Hx Reported Smoking Status: Never smoker Past Alcohol Use History: None Reported Past Drug Use History: None Reported - Past Family History Father Additional Family Medical History / Comment(s): spinal stroke General Exam - General Exam Comments Initial Comments: GENERAL: Patient is well-developed and well-nourished. Patient is nontoxic and well- hydrated and is in mild distress. ENT: Neck is soft and supple. No significant lymphadenopathy is noted. Oropharynx is clear. Moist mucous membranes. Neck has full range of motion without eliciting any pain. EYES: The sclera were anicteric and conjunctiva were pink and moist. Extraocular movements were intact and pupils were equal round and reactive to light. Eyelids were unremarkable. PULMONARY: Unlabored respirations. Good breath sounds bilaterally. No audible rales rhonchi or wheezing was noted. CARDIOVASCULAR: There is a regular rate and rhythm without any murmurs gallops or rubs. ABDOMEN: Soft and nontender with normal bowel sounds. She had no area of palpable tenderness SKIN: Skin is clear with no lesions or rashes and otherwise unremarkable. NEUROLOGIC: Patient is alert and oriented x3. Cranial nerves II through XII are grossly intact. Motor and sensory are also intact. Normal speech, volume and content. Symmetrical smile. MUSCULOSKELETAL: Normal extremities with adequate strength and full range of motion. LYMPHATICS: No significant lymphadenopathy is noted PSYCHIATRIC: Normal psychiatric evaluation. Limitations: no limitations Course Vital Signs 06/18/22 17:49 Temperature 97.8 F Pulse Rate 73 Respiratory 16 Rate Blood Pressure 114/76 O2 Sat by Pulse 98 Oximetry Medical Decision Making - Medical Decision Making CT of the abdomen and pelvis as interpreted by me. CT of abdomen pelvis shows no acute abnormality. - Lab Data Result diagrams: 06/18/22 18:44 06/18/22 18:44 Lab Results 06/18/22 06/18/22 06/18/22 Range/Units 18:31 18:44 18:44 WBC 3.7 L (3.8-10.6) k/uL RBC 4.77 (4.30-5.90) m/uL Hgb 14.7 (13.0-17.5) gm/dL Hct 43.9 (39.0-53.0) % MCV 92.0 (80.0-100.0) fL MCH 30.8 (25.0-35.0) pg MCHC 33.5 (31.0-37.0) g/dL RDW 11.8 (11.5-15.5) % Plt Count 151 (150-450) k/uL MPV 8.2 Neutrophils % 56 % Lymphocytes % 34 % Monocytes % 7 % Eosinophils % 0 % Basophils % 2 % Neutrophils # 2.1 (1.3-7.7) k/uL Lymphocytes # 1.3 (1.0-4.8) k/uL Monocytes # 0.2 (0-1.0) k/uL Eosinophils # 0.0 (0-0.7) k/uL Basophils # 0.1 (0-0.2) k/uL Sodium 138 (137-145) mmol/L Potassium 3.8 (3.5-5.1) mmol/L Chloride 102 (98-107) mmol/L Carbon Dioxide 26 (22-30) mmol/L Anion Gap 10 mmol/L BUN 15 (9-20) mg/dL Creatinine 0.76 (0.66-1.25) mg/dL Est GFR (CKD-EPI)AfAm >90 (>60 ml/min/1.73 sqM) Est GFR (CKD-EPI)NonAf >90 (>60 ml/min/1.73 sqM) Glucose 97 (74-99) mg/dL Calcium 8.9 (8.4-10.2) mg/dL Total Bilirubin 0.6 (0.2-1.3) mg/dL AST 50 (17-59) U/L ALT 47 (4-49) U/L Alkaline Phosphatase 65 (38-126) U/L Total Protein 7.0 (6.3-8.2) g/dL Albumin 4.2 (3.5-5.0) g/dL Amylase 66 (30-110) U/L Lipase 110 (23-300) U/L Urine Color Yellow Urine Appearance Clear (Clear) Urine pH 6.0 (5.0-8.0) Ur Specific [place] 1.013 (1.001-1.035) Urine Protein Trace H (Negative) Urine Glucose (UA) Negative (Negative) Urine Ketones Negative (Negative) Urine Blood Negative (Negative) Urine Nitrite Negative (Negative) Urine Bilirubin Negative (Negative) Urine Urobilinogen <2.0 (<2.0) mg/dL Ur Leukocyte Esterase Negative (Negative) Disposition Clinical Impression: Abdominal pain Disposition: HOME SELF-CARE Instructions (If sedation given, give patient instructions): Abdominal Pain (ED) Is patient prescribed a controlled substance at d/c from ED?: No Referrals: Mariely George MD [Primary Care Provider] - 1-2 days Time of Disposition: 19:38
== END 2022-06-18 20:13 | disposition home or self-care (01) ==
LOC: EC 17:45
DX: R10.9 Unspecified abdominal pain (principal)
CPT/HCPCS: 36415; 80053; 82150; 83690; 85025; 81003; 87636; 74176; 99284; 96374; 96361; J1885